=== PATIENT | female | born 1950 | race Caucasian/White ===

== ENCOUNTER 2016-10-03 17:41 | Emergency (ER) | payer OTHER ==
[~2016-10-03] VITALS: Ht 162.6 cm; Wt 109.7 kg
[~2016-10-03 17:41] MED LIST: ASPI81TA45 PO; ATRO17AE INH; CENTTAB16 PO; CETI10 PO; DICL75 PO; GLIM1 PO; HYDR-2768 PO; ICAPTAB PO; LEVO75TA3 PO; OXYB5TAB PO; PRAV40TA2 PO; TRAM50TA PO
[2016-10-03 17:53] VITALS: BP 151/89; PULSE 118; RESP 20; TEMP 98.4; O2SAT 99
[2016-10-03] MEDS ORDERED: HYDR25TA5 PO (18:14)
[2016-10-03] MEDS ORDERED: GLIM1TAB PO (18:14)
[2016-10-03] MEDS ORDERED: PRED1 PO (18:14)
[2016-10-03] MEDS ORDERED: LEVA500T PO (18:14)
[2016-10-03] MEDS ORDERED: LEVO75TA43 PO (18:14)
[2016-10-03] MEDS ORDERED: IPRA17I INH (18:14)
[2016-10-03] MEDS ORDERED: ALBU0.08 NEB (18:14)
[2016-10-03] MEDS ORDERED: ASPI81TA19 PO (18:14)
[2016-10-03] MEDS ORDERED: OXYB5TAB10 PO (18:14)
[2016-10-03] MEDS ORDERED: FLUT1INH INH (18:14)
[2016-10-03] MEDS ORDERED: DICL75TA PO (18:14)
[2016-10-03] MEDS ORDERED: TRAM50TA PO (18:14)
[2016-10-03] MEDS ORDERED: LIPI40TA PO (18:14)
--- NOTE | 2016-10-03 18:38 | PD ---
HPI Chief Complaint: Allergic/Adverse Reaction Time Seen by Provider: 18:20 Travel History International Travel<30 days: No Contact w/Intl Traveler<30days: No Traveled to known affect area: No History of Present Illness HPI She complains of allergic reaction. Started on Monday. Duration 2 days. She thinks it may be due to to a new type of cutch cleaner that she used. She is also currently taking Levaquin and prednisone has been on both before without trouble. 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 She has an appointment with her patcher wood welder tomorrow at 11 AM. She denies shortness of breath or swelling of lips or tongue or throat. She is speaking and swallowing well. She is covered with urticaria diffusely and has itching. She took Benadryl at 4:30 PM today and as noted is currently on prednisone which was prescribed for bronchitis. Symptoms severity is moderate. No alleviating factors. PFSH Past Medical History Arthritis: Yes (OA) Asthma: Yes Cancer: Yes (SCCA R LOWER LEG) Cardiovascular Problems: No Diabetes: Yes Patient Takes Glucophage: Yes Endocrine: Yes Genitourinary: No Hepatitis: No Hiatal Hernia: No Hypertension: Yes Immune Disorder: No Medical other: Yes (HIGH CHOLESTEROL) Musculoskeletal: Yes (ARTHRITIS, BACK PROBLEMS) Neurologic: No Psychiatric: No Reproductive: No Respiratory: Yes (SLEEP APNEA/CPAP) Thyroid Disease: Yes Triglycerides - High: Yes Tetanus Vaccination: > 5 Years Influenza Vaccination: Yes Dilation and Curettage (D&C): Yes Past Surgical History Abdominal Surgery: Yes (CHOLECYSTECTOMY 2000) AICD: No Body Medical Devices: L ACL REPAIR -- PLASTIC SCREW? Section: Yes Cholecystectomy: Yes Gynecologic Surgery: Yes (C SECTIONS X 2, D & C 1977) Joint Replacement: No Oral Surgery: Yes (TONSILLECTOMY 1993) Pacemaker: No Tonsillectomy: Yes Other Surgery: Yes (VEIN STRIPPING/SKIN GRAFTING) Social History Alcohol Use: No Tobacco Use: No Substance Use: No Allergies-Medications (Allergen,Severity, Reaction): Coded Allergies: Lasix (Verified Allergy, Severe, Hives, 10/03/16) Metformin (Verified Allergy, Severe, heart pounding, 10/03/16) Roxicet (Unverified Allergy, Intermediate, HIVES, 10/03/16) Reported Meds & Prescriptions Reported Meds & Active Scripts Active Reported Lipitor (Atorvastatin Calcium) 40 Mg Tab 40 Mg PO HS Levaquin (Levofloxacin) 500 Mg Tab 500 Mg PO DAILY Prednisone 1 Mg Tab 1 Mg PO DIRECTED Albuterol Neb (Albuterol Sulfate) 2.5 Mg/3 Ml Neb 2.5 Mg NEB Q4HR NEB PRN Atrovent HFA 12.9 GM Inh (Ipratropium [place]) 17 Mcg/Act Aer 2 Puff INH Q6HR PRN Aspir-Low (Aspirin) 81 Mg Tabdr 81 Mg PO DAILY Tramadol (Tramadol HCl) 50 Mg Tab 50 Mg PO BID PRN Ditropan (Oxybutynin Chloride) 5 Mg Tab 5 Mg PO Q12HR Diclofenac Sodium DR (Diclofenac Sodium) 75 Mg Tabdr 75 Mg PO DAILY Breo Ellipta Inh (Fluticasone/Vilanterol) 100-25 Mcg/Act Inh 1 Puff INH DAILY Use daily at the same time. Glimepiride 1 Mg Tab 1 Mg PO BID Take with breakfast or first main meal Levoxyl (Levothyroxine Sodium) 75 Mcg Tab 75 Mcg PO DAILY Hydrochlorothiazide 25 Mg Tab 25 Mg PO DAILY Review of Systems General / Constitutional: No: Fever Eyes: No: Visual changes HENT: No: Headaches Cardiovascular: No: Chest Pain or Discomfort Respiratory: No: Shortness of Breath Gastrointestinal: No: Abdominal Pain Genitourinary: No: Dysuria Musculoskeletal: No: Pain Skin: Positive Rash, Positive Itching, Positive Hives Neurologic: No: Weakness Psychiatric: No: Depression Endocrine: No: Polydipsia Hematologic/Lymphatic: No: Easy Bruising Physical Exam Narrative GENERAL: Well-nourished, well-developed patient in no apparent distress. SKIN: Warm and dry. Has diffuse urticarial lesions on all 4 extremities as well as torso and face HEAD: Atraumatic. Normocephalic. EYES: Pupils equal and round. No scleral icterus. No injection or drainage. ENT: No nasal bleeding or discharge. Mucous membranes pink and moist. No swelling of lips or tongue or uvula NECK: Trachea midline. No JVD. CARDIOVASCULAR: Regular rate and rhythm. No murmur appreciated. RESPIRATORY: No accessory muscle use. Clear to auscultation. Breath sounds equal bilaterally. GASTROINTESTINAL: Abdomen soft, non-tender, nondistended. Hepatic and splenic margins not palpable. MUSCULOSKELETAL: No obvious deformities. No clubbing. No cyanosis. No edema. NEUROLOGICAL: Awake and alert. No obvious cranial nerve deficits. Motor grossly within normal limits. Normal speech. PSYCHIATRIC: Appropriate mood and affect; insight and judgment normal. Data Data Last Documented VS Vital Signs Date Time Temp Pulse Resp B/P Pulse Ox O2 Delivery O2 Flow Rate FiO2 10/03/16 17:53 98.4 118 20 151/89 99 MDM Medical Decision Making Medical Screen Exam Complete: Yes Emergency Medical Condition: Yes Medical Record Reviewed: Yes Differential Diagnosis Allergic reaction, urticaria, dermatitis Narrative Course I have reviewed the patient's electronic medical record. Presentation seems consistent with allergic reaction of some sort. But she started tried antihistamine and prednisone without any relief so I'm going to give her more aggressive treatment. Order an allergic medication cocktail and observe her on telemetry for an hour and asked the night his edition to reassess her in an hour and see if any progress has been made. We'll give her dose of intramuscular epinephrine in addition to antihistamine and steroid. She has no cardiac problems and agrees to the epinephrine. I don't see any indication for testing. She is not short of breath Keith Erwin MD Oct 03, 2016 18:38
[2016-10-03] MEDS ORDERED: diphenhydrAMINE HCL 50 MG/ML VIAL IM ONE (18:45)
[2016-10-03] MEDS ORDERED: FAMOTIDINE 20 MG TAB PO ONE (18:45)
[2016-10-03] MEDS ORDERED: EPINEPHrine HCL (1:1000) 1 MG/ML VIAL IM ONE (18:45)
[2016-10-03] MEDS ORDERED: methylPREDNISolone SOD SUCC 125 MG/2 ML VIAL IM ONE (18:45)
[2016-10-03 19:15] VITALS: BP 126/64; PULSE 98; RESP 18; O2SAT 100
[2016-10-03 20:50] VITALS: BP 124/57; PULSE 100; RESP 18; O2SAT 99
[2016-10-03] MEDS ORDERED: ZANT150T2 PO (21:55)
[2016-10-03] MEDS ORDERED: BENA25TA3 PO (21:55)
--- NOTE | 2016-10-03 21:55 | PD ---
Physical Exam Time Seen by Provider: 21:[address] Erwin left this patient with me to make sure that the patient got better and discharge. Data Data Last Documented VS Vital Signs Date Time Temp Pulse Resp B/P Pulse Ox O2 Delivery O2 Flow Rate FiO2 10/03/16 20:50 100 18 124/57 99 Room Air 10/03/16 17:53 98.4 Orders Ecg Monitoring (10/03/16 18:39) Diphenhydramine Inj (Benadryl Inj) (10/03/16 18:45) Methylprednisolone So Succ Inj (Solumedr (10/03/16 18:45) Epinephrine (1:1000) Inj (Adrenalin (1:1 (10/03/16 18:45) Famotidine (Pepcid) (10/03/16 18:45) MDM Medical Record Reviewed: Yes Supervised Visit with AMANDA: Yes Differential Diagnosis Allergic urticaria, cellulitisunlikely, contact dermatitisunlikely Narrative Course The patient has allergic urticaria. It is now 951 and her rashes flattening out and much less pruritic. She is already on prednisone for her bronchitis. Plan: The patient be given Zantac and Benadryl prescriptions. She should return to emergency department if worse. She should continue on her current course of prednisone. The patient feels that it was the carpet cleaning chemicals or carpet mites that may have initiated this problem. Diagnosis Primary Impression: Allergic urticaria Additional Instruction: You should certainly avoid any carpet exposure beat carpet mites her carpet chemicals. Follow-up with her primary care physician. If this becomes a recurrent problem you may need an applications project manager. The Benadryl is one or 2 tablets every 6 hours and the Zantac is twice daily area Med/Other Pt SpecificInfo: Prescription(s) given Scripts Diphenhydramine (Benadryl Allergy)25 Mg Tab25 Mg PO Q6H PRN (ALLERGIES) #50 TAB Ref 0 Prov:Pilo Stroud MD 10/03/16 Ranitidine (Zantac)150 Mg [id number] Mg PO BID #60 TAB Ref 0 Prov:Pilo Stroud MD 10/03/16 Disposition: 01 DISCHARGE HOME Condition: Stable Pilo Stroud MD Oct 03, 2016 21:55
[2016-10-03 21:58] VITALS: BP 131/66; PULSE 96; RESP 18; O2SAT 99
== END 2016-10-03 22:09 | disposition home or self-care (01) ==
LOC: PHED 17:41
DX: L50.0 Allergic urticaria (principal); E11.9 Type 2 diabetes mellitus without complications; I10 Essential (primary) hypertension; E78.00 Pure hypercholesterolemia, unspecified; G47.30 Sleep apnea, unspecified; J45.909 Unspecified asthma, uncomplicated
CPT/HCPCS: 96372; 99283; J0171; J1200; J2930